=== PATIENT | female | born 1975 | race Caucasian/White ===

== ENCOUNTER 2020-10-12 09:35 | Outpatient (REF) | payer OTHER, SELFPAY | END 2020-10-12 09:36 | disposition home or self-care (01) | LOC: HO.LAB 09:35 | PROVIDERS: Visit Provider Internal Medicine | DX: Z20.822 Contact with and (suspected) exposure to COVID-19 (principal) | CPT/HCPCS: 36415; C9803; U0003; U0005 ==

== ENCOUNTER 2020-11-28 14:43 | Emergency (ER) | payer OTHER, SELFPAY ==
[2020-11-28 15:06] VITALS: BP 118/75; PULSE 89; RESP 18; TEMP 36.7; O2SAT 99; BMI 22.1
--- NOTE | 2020-11-28 16:24 | ED_ITS ---
HPI - Headache General Chief Complaint: Headache Stated Complaint: headache Time Seen by Provider: 11/28/20 15:51 Source: patient Mode of arrival: ambulatory Limitations: no limitations History of Present Illness HPI Narrative: 45-year-old female with a past medical history of migraines with a generalized headache which feels very similar to her previous migraine since yesterday unrelieved with Advil and Tylenol at home. She has photophobia. No nausea, vomiting, dizziness, weakness, vision changes. No history of injury or trauma. She does feel like she is achy but denies any fevers or chills or neck pain. Related Data Previous Rx's Medication Instructions Recorded [id number] 1 cap PO Q8H PRN #15 cap 11/28/20 [Fioricet] Allergies Allergy/AdvReac Type Severity Reaction Status Date / Time No Known Allergies Allergy Verified 11/28/20 15:06 Review of Systems Review of Systems: Yes all other systems are reviewed and are negative Constitutional: Constitutional: Reports no additional constitutional complaints, Denies body ache(s), Denies chills, Denies fever(s), Reports headache(s) and Denies weakness Eyes: Eyes: Reports no additional eye complaints, Denies change in vision and Reports photophobia ENT: Reports system reviewed and no additional complaints, except as documented, Denies dizziness, Reports headache(s), Denies nasal congestion, Denies nasal discharge and Denies neck pain Cardiovascular: Cardiovascular: Reports no additional cardiovascular complaints, Denies chest pain, Denies leg edema and Denies dyspnea Respiratory: Respiratory: Reports no additional respiratory complaints, Denies cough and Denies dyspnea Gastrointestinal: Gastrointestinal: Reports no additional gastrointestinal complaints, Denies abdominal pain, Denies diarrhea, Denies nausea and Denies vomiting Genitourinary: Genitourinary: Reports no additional female genitourinary complaints and Denies urinary incontinence Musculoskeletal: Musculoskeletal: Reports no additional musculoskeletal complaints, Denies back pain, Denies arthralgias, Denies joint swelling, Denies neck pain, Denies numbness and Denies tingling Integumentary/Breasts: Skin/Breast: Reports system reviewed and no additional complaints, except as docu and Denies rash Neurologic: Reports system reviewed and no additional complaints, except as documented, Denies Abnormal speech present, Denies dizziness, Reports headache(s), Denies numbness, Denies tingling and Denies weakness PMF Past Medical History Attestation statement: The following information was validated with the patient. Source: old records reviewed and nursing notes reviewed Social History Social History Advance Directives: No Advance Directives Information Provided: Yes Physical Exam Vital Signs: Vital Signs: Last Vital Signs Temp 98.1 F 11/28/20 15:06 Pulse 64 11/28/20 18:09 Resp 16 11/28/20 18:09 BP 118/66 11/28/20 18:09 Pulse Ox 98 11/28/20 18:09 Body Mass Index 22.1 Const: General: cooperative, healthy appearing, comfortable and no acute distress Orientation/consciousness: patient oriented x3 Limitations: no limitations HENMT: Head: Yes normal to inspection Ears: hearing grossly normal bilaterally General nose exam: Normal external nose present Face and sinus: Yes normal facial exam Mouth: Normal oral and palatal mucosa present Throat: Yes posterior oropharynx normal Eyes: General: appearance normal, both eyes and all related structures Pupils: Equal, round and reactive pupils present Direct Ophthalmoscopy: photophobia Neck: Neck: Yes normal visual inspection Chest: Chest palpation & inspection: normal inspection of the chest Resp: Effort & Inspection: normal respiratory effort Auscultation: clear to auscultation bilaterally Cardio: Rate: regular rate Rhythm: regular rhythm Peripheral pulses: Peripheral pulses 2+ throughout GI: Inspection: Yes normal to inspection Palpation (GI): Soft to palpation and nontender Auscultation: normal bowel sounds Back/Spine/Pelvis: Thoracic/Lumbar Spine: thoracic and lumbar spine normal to inspection Skin: General skin exam: no rashes or lesions noted Neuro: General: patient oriented x3, no focal motor deficits and normal sensation to monofilament Cranial nerves: Yes CN's II-XII intact bilaterally, Yes Equal, round and reactive pupils present, Yes Bilaterally intact EOM present, Yes Nystagmus not present, Yes Normal facial strength present and Yes Midline tongue present Cognition (Neuro): normal cognition Speech: No Abnormal speech present Gait exam (Neuro): Normal gait present Motor exam (neuro): 5/5 motor strength present throughout Sensory Exam: Normal double simultaneous stimulation for sensation Coordination: iglcgn-ep-fklf test normal and vuey-km-knwn test normal Extrem: General: Yes normal to inspection Course Course Course Narrative: 45 yo female with past medical history of migraines here with generalized headache and photophobia since yesterday unrelieved with towo-tee-emmbtne Motrin Tylenol. Normal neuro exam. No neurological deficits or red flag symptoms. Feels similar to previous migraines. Will place PIV and give normal saline bolus, IV Toradol, IV Reglan and Benadryl 1800-pain is resolved. Patient is tolerating p.o.. Feeling much improved. Reviewed worrisome signs and symptoms and when to return to the emergency d epartment. Comfortable discharge home. MDM - Headache Medical Records Attestation: I reviewed the patient's medical records. Lab Data Attestation: I reviewed the patient's lab results. Discharge Plan Discharge Clinical Impression: Migraine Qualifiers: Migraine type: unspecified Status migrainosus presence: with status migrainosus Intractability: not intractable Qualified Code(s): G43.901 - Migraine, unspecified, not intractable, with status migrainosus Patient Disposition: Home, Self-Care Instructions: Migraine Headache (ED) Additional Instructions: Keep a migraine diary Follow-up with your doctor requests referral for neurologist Prescriptions: New mikeidekrh-ygwngucajuymj-kcgc [Fioricet] 50-300-40 mg capsule 1 cap PO Q8H PRN (Reason: pain) Qty: 15 RF: 0 Referrals: Physician,Unknown [Primary Care Provider] - 2 days Stand Alone Forms: Work/School Release Interventions: ED Discharge Assessment Last Done: 11/28/20 19:01 Discharge Date/Time: 11/28/20 18:15
[2020-11-28] MEDS: 0.9 % Sodium Chloride 1,000 ML 999 ML IV (16:28)
[2020-11-28] MEDS: Metoclopramide HCl 10 MG/2 ML VIAL IVPUSH (16:28)
[2020-11-28] MEDS: diphenhydrAMINE HCL 50 MG/ML VIAL 25 MG IVPUSH (16:28)
[2020-11-28] MEDS: Ketorolac Tromethamine 30 MG/ML VIAL IVPUSH (16:29)
[2020-11-28 18:09] VITALS: BP 118/66; PULSE 64; RESP 16; O2SAT 98
[2020-11-28 20:12] LABS: COVID-19 Test Negative (Negative)
== END 2020-11-28 18:15 | disposition home or self-care (01) ==
PROVIDERS: Nurse Practitioner Family; Emergency Provider Emergency Medicine
DX: G43.901 Migraine, unspecified, not intractable, with status migrainosus (principal); Z20.822 Contact with and (suspected) exposure to COVID-19
CPT/HCPCS: 36415; 87635; 96361; 96374; 96375; 99284; J1200; J1885; J2765

== ENCOUNTER 2021-07-21 14:41 | Emergency (ER) | payer OTHER, SELFPAY ==
--- NOTE | ~2021-07-21 | CT_ITS ---
EXAMINATION: CT HEAD WITHOUT CONTRAST CLINICAL INFORMATION: Headache COMPARISON: CT had noncontrast 08/15/2012 TECHNIQUE: Contiguous axial imaging was performed from the skull base to vertex without intravenous administration of contrast. Additional 2-D coronal and sagittal reformatted images are generated on the CT workstation and uploaded to PACS. This CT examination was performed using dose optimization techniques as appropriate, variously including the following: *Automated exposure control *Adjustment of mA and/or kV according to patient size (this includes techniques or standardized protocols for targeted exams where dose is matched to indication/reason for exam; i.e. extremities or head) *Use of iterative reconstruction technique DLP: 575 mGy-cm FINDINGS: There is no intracranial hemorrhage, hematoma, or extra-axial fluid collection. The ventricles are normal in size. There is no hydrocephalus, edema, or mass effect. The mcdaniel-white matter differentiation appears symmetric. There is no visible acute territorial infarct or mass lesion. The calvarium appears intact. There is no pneumocephalus or orbital emphysema. There is mucosal thickening involving the right sinuses including the ethmoid air cells, right frontal, right sphenoid, right maxillary sinus. No definite air-fluid levels. Left sinus is visualized are clear. The middle ears and mastoid air cells are unremarkable. CT/CT head/brain wo con IMPRESSION: 1. Mucosal thickening involving right-sided sinuses. No definite air-fluid level. 2. Otherwise, no acute intracranial abnormality.
[2021-07-21 14:50] VITALS: BP 138/90; PULSE 80; RESP 20; TEMP 36.8; O2SAT 98; BMI 22.4
--- NOTE | 2021-07-21 15:34 | ED_ITS ---
HPI - Headache General Chief Complaint: Headache Stated Complaint: migraine Time Seen by Provider: 07/21/21 15:26 Source: patient Mode of arrival: ambulatory Limitations: no limitations History of Present Illness HPI Narrative: This is a 46-year-old female with history of migraine headaches, complains of severe headache for about 2 weeks constantly. The patient has been prescribed verapamil and sumatriptan without relief. She does not recall the headache came on gradually her suddenly. She states this is much worse than prior headaches, is 10/10. She notes light bothers her eyes. She has had nausea but no vomiting. The headache is in the back of her head, worse on the right side and also in the frontal area. She notes the pain radiates down to her neck. She denies any focal weakness or numbness in her face, arms, or legs. She denies prior CT or MRI scanning to assess her headaches. Related Data Previous Rx's Medication Instructions Recorded [id number]-clxpzqkxvkdhn-mobuprtx 1 cap PO Q8H PRN #15 cap 11/28/20 50 mg-300 mg-40 mg capsule (Fioricet) Allergies Allergy/AdvReac Type Severity Reaction Status Date / Time No Known Allergies Allergy Verified 11/28/20 15:06 Review of Systems Review of Systems: Yes all other systems are reviewed and are negative Constitutional: Constitutional: Denies chills, Reports fatigue, Denies fever(s) and Reports headache(s) Eyes: Eyes: Reports photophobia ENT: Reports headache(s) Cardiovascular: Cardiovascular: Reports no additional cardiovascular complaints Respiratory: Respiratory: Reports no additional respiratory complaints Gastrointestinal: Gastrointestinal: Denies vomiting Musculoskeletal: Musculoskeletal: Reports myalgias Neurologic: Reports headache(s) and Denies Sensory deficit (Neuro) Endocrine: Endocrine: Reports fatigue [facility] Social History Social History Advance Directives: No Advance Directives Information Provided: No Physical Exam Vital Signs: Vital Signs: Last Vital Signs Temp 97.8 F 07/21/21 17:01 Pulse 74 07/21/21 17:01 Resp 16 07/21/21 17:01 BP 147/91 H 07/21/21 17:01 Pulse Ox 99 07/21/21 17:01 Body Mass Index 22.4 Const: Other: Patient appears uncomfortable, keeping her jacket over her head to avoid the light. Neck is supple. General: cooperative, no acute distress and alert Orientation/consciousness: patient oriented x3 HENMT: Head: Yes normal to inspection Eyes: General: appearance normal, both eyes and all related structures Eyelids: Yes eyelids normal Conjunctivae: conjunctivae normal Pupils: Equal, round and reactive pupils present Direct Ophthalmoscopy: photophobia Neck: Neck: Yes normal visual inspection and Yes supple Chest: Chest palpation & inspection: normal inspection of the chest Resp: Effort & Inspection: normal respiratory effort Auscultation: clear to auscultation bilaterally Cardio: Rate: regular rate Rhythm: regular rhythm Heart sounds: S1 normal heart sound present, S2 normal heart sound present, no gallops, no murmurs and no rubs GI: Palpation (GI): Soft to palpation, nontender and Other GI palpation f indings present (Non-distended) Auscultation: normal bowel sounds Skin: General skin exam: no rashes or lesions noted Neuro: General: patient oriented x3, no focal motor deficits and CN's II-XI intact bilaterally Cranial nerves: Yes Equal, round and reactive pupils present Cognition (Neuro): normal cognition Motor exam (neuro): 5/5 motor strength present throughout Sensory Exam: No Sensory deficit (Neuro) Extrem: General: Yes normal to inspection and Yes no pedal edema Psych: Appearance: grossly normal Affect: normal affect MDM - Headache MDM Narrative Medical decision making narrative: Patient with a somewhat regressive and affect, complained of severe headache for a few weeks, not responding to outpatient medications. CT scan was done and showed no evidence of subarachnoid hemorrhage or other concerning lesion. Patient was treated with Compazine, Toradol, and Valium and felt much better, felt comfortable going home. Imaging Data CT scan - head: Radiologist's impression: FINDINGS: There is no intracranial hemorrhage, hematoma, or extra-axial fluid collection.? The ventricles are normal in size. There is no hydrocephalus, edema, or mass effect.? The mcdaniel-white matter differentiation appears symmetric.? There is no visible acute territorial infarct or mass lesion. The calvarium appears intact. There is no pneumocephalus or orbital emphysema.? There is mucosal thickening involving the right sinuses including the ethmoid air cells, right frontal, right sphenoid, right maxillary sinus. No definite air-fluid levels. Left sinus is visualized are clear. The middle ears and mastoid air cells are unremarkable. CT/CT head/brain wo con IMPRESSION: ? 1. Mucosal thickening involving right-sided sinuses. No definite air-fluid level. 2. Otherwise, no acute intracranial abnormality. Discharge Plan Discharge Clinical Impression: Migraine Patient Disposition: Home, Self-Care Instructions: Migraine Headache (ED) Additional Instructions: Continue current medications. Follow up with primary care physician for possible neurology referral if you have her current headaches. Return for any new or worsened symptoms. Prescriptions: No Action jhohgmnngt-lhedzgomgcriw-ccda [Fioricet] 50-300-40 mg capsule 1 cap PO Q8H PRN (Reason: pain) Qty: 15 RF: 0 Discharge Date/Time: 07/21/21 17:08
[2021-07-21] MEDS: diazePAM 5 MG TABLET PO (15:45)
[2021-07-21] MEDS: Prochlorperazine Edisylate 10 MG/2 ML VIAL IVPUSH (15:46)
[2021-07-21] MEDS: Ketorolac Tromethamine 15 MG/ML VIAL IVPUSH (15:47)
[2021-07-21 17:01] VITALS: BP 147/91; PULSE 74; RESP 16; TEMP 36.6; O2SAT 99
== END 2021-07-21 17:08 | disposition home or self-care (01) ==
PROVIDERS: Emergency Provider Emergency Medicine
DX: G43.009 Migraine without aura, not intractable, without status migrainosus (principal)
CPT/HCPCS: 70450; 96374; 96375; 99283; 99284; J1885

== ENCOUNTER 2022-06-23 13:29 | Outpatient (REF) | payer OTHER, SELFPAY | END 2022-06-23 13:30 | disposition home or self-care (01) | LOC: HO.SH 13:29 | PROVIDERS: Visit Provider Student in an Organized Health Care Education/Training Program | DX: Z01.118 Encounter for examination of ears and hearing with other abnormal findings (principal); H93.293 Other abnormal auditory perceptions, bilateral; H93.13 Tinnitus, bilateral | CPT/HCPCS: 92557; 92567 ==